=== PATIENT | male | born 1985 | race Native Hawaiian/Other Pacific Islander ===

== ENCOUNTER 2022-05-28 14:45 | Emergency (ER) | payer OTHER ==
[~2022-05-28] VITALS: Ht 167.6 cm; Wt 83.9 kg
[2022-05-28 14:48] VITALS: BP 166/109; TEMP 98.2
[2022-05-28 16:07] LABS: PLATELET COUNT 347 K/uL (142-355)
[2022-05-28 16:16] LABS: POTASSIUM 4.9 mmol/L (3.6-5.2)
== END 2022-05-28 20:45 | disposition home or self-care (01) ==
LOC: ED 14:45
PROVIDERS: Emergency Medicine
DX: K52.89 Other specified noninfective gastroenteritis and colitis (principal)
CPT/HCPCS: 80053; 81002; 83690; 85027; 96360; 96372; 96374; 96375; 99284; J2270; J2405; Q9963